=== PATIENT | female | born 1990 | race Caucasian/White ===

== ENCOUNTER 2023-08-17 18:50 | Emergency (ER) | payer OTHER, MEDICAID, SELFPAY ==
[2023-08-17 19:08] VITALS: BP 161/95; PULSE 78; RESP 18; TEMP 36.6; O2SAT 99; BMI 35.4
--- NOTE | 2023-08-17 19:45 | PC.NURSE ---
pt c/o painful bump to vaginal area, assessment by Patsy Dueñas,
--- NOTE | 2023-08-17 21:40 | ED.FEMALEGU ---
HPI - Female Genitourinary General Chief complaint: Urogenital-Female Stated complaint: abcess on groin Time Seen by Provider: 08/17/23 21:17 Source: patient Mode of arrival: Ambulatory History of Present Illness HPI Narrative: Patient is a 33-year-old healthy female who presents today with 2-3 days of swelling in her left labia. She states that she only notices it when she wipes. She has not had any fever or chills. She is okay to walk. She has not had a Bartholin cyst before but based on her own research she does not think that is what it is it has a little bit more superior. No painful frequent urination no abdominal pain. Related Data Previous Rx's Medication Instructions Recorded sulfamethoxazole 800 1 tab PO BID 7 days #14 tabs 08/17/23 mg-trimethoprim 160 mg tablet (Bactrim DS) Allergies Allergy/AdvReac Type Severity Reaction Status Date / Time No Known Drug Allergies Allergy Verified 08/17/23 19:07 Patient History Last Alcoholic Drink: does not use Substance Use Type: does not use Exam Initial Vital Signs Initial Vital Signs: Vital Signs Temperature 97.8 F 08/17/23 19:08 Pulse Rate 78 08/17/23 19:08 Respiratory Rate 18 08/17/23 19:08 Blood Pressure 161/95 H 08/17/23 19:08 Pulse Oximetry 99 08/17/23 19:08 Oxygen Delivery Method Room Air 08/17/23 19:08 GENERAL: Well-appearing, well-nourished and in no acute distress. CARDIOVASCULAR: peripheral pulses in tact, cap refill <2 sec RESPIRATORY: No respiratory distress, speaks in full sentences without difficulty VAGINA: small 1 cm area of swelling on the upper 1/3 of the labia minora, minimal swelling minimal pain EXTREMITIES: Normal range of motion, no clubbing or edema. Neurovascularly intact NEUROLOGICAL: Cranial nerves II through XII grossly intact. Normal gait and speech. SKIN: Warm, dry, no petechiae, no rashes or lesions. Course Orders Ordered: Discontinued Medications Trimethoprim/Sulfamethoxazole (Trimeth/Sulfa 160/800 (Ds) Tablet) 1 tab PO NOW ONE Stop: 08/17/23 21:45 Last Admin: 08/17/23 21:57 Dose: 1 tab Documented By: MARK ANTHONY Vital Signs Vital signs: Vital Signs - 8 hr 08/17/23 19:08 08/17/23 22:03 Temperature 97.8 F 97.7 F Pulse Rate 78 78 Respiratory Rate 18 18 Blood Pressure 161/95 H 135/87 Pulse Oximetry 99 97 Oxygen Delivery Method Room Air Room Air MDM - Female Genitourinary Lab Data Labs: Point of Care Testing Test Results Negative Urine Dip Bedside Urine Glucose Negative Bedside Urine Bilirubin - Negative Bedside Urine Ketone - Negative Urine Specific Erskine 1.01 Bedside Urine Occult Blood - Negative Bedside Urine pH 6.5 Bedside Urine Protein - Negative Bedside Urine Urobilinogen - Negative Bedside Urine Nitrite - Negative Bedside Urine Leukocytes - Negative Esterase MDM Narrative Medical decision making narrative: Patient 33-year-old female presents today with 2-3 days of left labia swelling. She is very small probable early abscess do not think Bartholin cyst at this time. It is about 1 cm by half a cm. Minimally painful to touch. Encouraged warm Sitz baths. Discharge Plan Departure Patient Disposition: Home Clinical Impression: Left genital labial abscess Instructions: DI for Skin Abscess Activity Restrictions/Additional Instructions: *You have been diagnosed with left labia abscess *What to do: At this time area is not large enough to drain. Encourage warm compresses warm baths. It may need to be drained over the next few days pain make it worse. *Continue to take medications as directed Motrin and Tylenol as needed Bactrim 1 tablet twice a day for 7 days *Follow up with your primary care provider in 2-3 days or call [phone] *Return to ER if you should have increasing pain swelling fever or any new, worsening or concerning symptoms Prescriptions: New sulfamethoxazole-trimethoprim [Bactrim DS] 800-160 mg tablet 1 tab PO BID 7 Days Qty: 14 0RF Referrals: Miscellaneous,DoctorMD [Primary Care Provider] - Stand Alone Forms: Patient Portal/API, Work Release Note
[2023-08-17] MEDS: TRIMETH/SULFA 160/800 (DS) TABLET 1 TAB PO (21:57)
[2023-08-17 22:03] VITALS: BP 135/87; PULSE 78; RESP 18; TEMP 36.5; O2SAT 97
== END 2023-08-17 22:06 | disposition home or self-care (01) ==
PROVIDERS: Emergency Provider Emergency Medicine
DX: N76.4 Abscess of vulva (principal)
CPT/HCPCS: 81003; 81025; 99283

== ENCOUNTER 2023-11-10 09:17 | Emergency (ER) | payer OTHER, MEDICAID, SELFPAY ==
[2023-11-10 09:18] VITALS: BP 154/94; PULSE 75; RESP 14; TEMP 36.6; O2SAT 99; BMI 35.4
--- NOTE | 2023-11-10 09:22 | DI.RAD.S_ITS ---
PROCEDURE: XR ANKLE RT MIN 3V INDICATIONS: pain/swelling/injury TECHNIQUE: 3 views of the ankle were acquired. COMPARISON: None. FINDINGS: Bones: Mildly displaced obliquely oriented fracture of the distal fibula. Ankle mortise is normally aligned. No suspicious bony lesions. Soft tissues: No tibiotalar joint effusion. Achilles tendon appears normal. IMPRESSION: Mildly displaced fracture of the distal fibula. Dictated by: Joshua Choi M.D. on 11/10/2023 at 9:57 Approved by: Joshua Choi M.D. on 11/10/2023 at 9:59
--- NOTE | 2023-11-10 09:22 | DI.RAD.S_ITS ---
PROCEDURE: XR FOOT RT MIN 3V INDICATIONS: pain/swelling/injury TECHNIQUE: 3 views of the foot were acquired. COMPARISON: None. FINDINGS: Bones: No fractures or dislocations within foot. Distal fibular fracture as described on dedicated ankle radiographs.. No suspicious bony lesions. Soft tissues: No tibiotalar joint effusion. Achilles tendon appears normal. IMPRESSION: No acute osseous abnormalities with the foot. Distal fibular fracture. Dictated by: Joshua Choi M.D. on 11/10/2023 at 9:59 Approved by: Joshua Choi M.D. on 11/10/2023 at 9:59
--- NOTE | 2023-11-10 09:24 | ED.EXTPRO ---
HPI - Extremity Problem General Chief complaint: Extremity Injury, Lower Stated complaint: ankle injury, possible fracture per pt Time Seen by Provider: 11/10/23 09:21 History of Present Illness HPI Narrative: Patient here with . Denies does not want a test. Patient complains of right ankle pain and swelling. She injured this last night. She participates in [employer]. She states other players landed on her ankle. Has taken ibuprofen which helps for pain. Has been using cool packs as well. Unable to bear weight. No prior injury surgery or fracture to this area. Related Data Previous Rx's Medication Instructions Recorded hydrocodone 5 mg-acetaminophen 325 1 tab PO Q6H PRN pain #16 tabs 11/10/23 mg tablet ibuprofen 800 mg tablet 800 mg PO Q8H PRN pain #20 tabs 11/10/23 ondansetron 4 mg disintegrating 4 mg PO Q8H PRN nausea and 11/10/23 tablet vomiting #10 tabs Allergies Allergy/AdvReac Type Severity Reaction Status Date / Time shellfish derived Allergy Verified 11/13/23 12:27 Review of Systems Review of Systems Narrative: GENERAL: negative chills, fatigue, malaise, fever, sweats. HEENT: negative sinus pain, ear pain, sore throat RESPIRATORY: negative dyspnea, cough CARDIOVASCULAR: negative chest pain, palpitations GASTROINTESTINAL: negative nausea, vomiting, abdominal pain : negative dysuria, frequency, hematuria MUSCULOSKELETAL: Positive muscle or bony pain SKIN: negative rash, skin lesions NEUROLOGIC: negative weakness, numbness ROS Unobtainable: All systems reviewed & are unremarkable except as noted in HPI and below Patient History Social History Smoking Status: Never smoker Smoking Status: Never smoker Substance Use Type: does not use Exam Narrative Exam Narrative: GENERAL: in no distress, not toxic not dyspneic HEAD: Normocephalic. EYES: Pupils equal round ENT: Mucous membranes moist. NECK: Trachea midline. EXTREMITIES: No gross deformities. Right knee to toes exposed. Foot is warm soft and pink with brisk cap refills light touch intact to foot and toes. Strong pedal pulse. Examination of the ankle there is lateral ecchymosis and edema at the ankle. Limited flexion-extension movement due to pain. Nontender proximal tib-fib and knee. NEURO: AOx4. SKIN: Warm and dry PSYCH: Not anxious, is cooperative Initial Vital Signs Initial Vital Signs: Vital Signs Temperature 97.8 F 11/10/23 09:18 Pulse Rate 75 11/10/23 09:18 Respiratory Rate 14 11/10/23 09:18 Blood Pressure 154/94 H 11/10/23 09:18 Pulse Oximetry 99 11/10/23 09:18 Oxygen Delivery Method Room Air 11/10/23 09:18 Procedures Orthopedic Splinting/Casting Injury #1: Time of procedure: 10:31 Side: right Lower Extremity Injury Location: ankle Lower Extremity Immobilizer: posterior splint and stirrup splint Other Orthopedic Equipment: crutches Post splinting neuro exam: intact Post splinting vascular exam: intact Placed by: Nursing Course Orders Ordered: ED Orders 11/10/23 09:22 XR ankle RT min 3V Stat XR foot RT min 3V Stat Vital Signs Vital signs: Vital Signs - 8 hr 11/10/23 09:18 Temperature 97.8 F Pulse Rate 75 Respiratory Rate 14 Blood Pressure 154/94 H Pulse Oximetry 99 Oxygen Delivery Method Room Air MDM - Extremity (Nontraumatic) Imaging Data Extremity x-ray #1: Radiologist's Impression: [address] [address] XRay Report Signed Patient: Meka Galindo MR#: [id number] : 1990 Acct:[id number] Age/Sex: 33 / F Date of Service: 11/10/23 Loc: ED Accession Number: [id number] Procedure: XR foot RT min 3V Ordering Provider: Wenceslao Lyons MD PROCEDURE: XR FOOT RT MIN 3V INDICATIONS: pain/swelling/injury TECHNIQUE: 3 views of the foot were acquired. COMPARISON: None. FINDINGS: Bones: No fractures or dislocations within foot. Distal fibular fracture as described on dedicated ankle radiographs.. No suspicious bony lesions. Soft tissues: No tibiotalar joint effusion. Achilles tendon appears normal. IMPRESSION: No acute osseous abnormalities with the foot. Distal fibular fracture. Dictated by: Joshua Choi M.D. on 11/10/2023 at 9:59 Approved by: Joshua Choi M.D. on 11/10/2023 at 9:59 Extremity x-ray #2: Radiologist's Impression: [address] [address] XRay Report Signed Patient: Meka Galindo MR#: [id number] : 1990 Acct:[id number] Age/Sex: 33 / F Date of Service: 11/10/23 Loc: ED Accession Number: [id number] Procedure: XR ankle RT min 3V Ordering Provider: Wenceslao Lyons MD PROCEDURE: XR ANKLE RT MIN 3V INDICATIONS: pain/swelling/injury TECHNIQUE: 3 views of the ankle were acquired. COMPARISON: None. FINDINGS: Bones: Mildly displaced obliquely oriented fracture of the distal fibula. Ankle mortise is normally aligned. No suspicious bony lesions. Soft tissues: No tibiotalar joint effusion. Achilles tendon appears normal. IMPRESSION: Mildly displaced fracture of the distal fibula. Dictated by: Joshua Choi M.D. on 11/10/2023 at 9:57 Approved by: Joshua Choi M.D. on 11/10/2023 at 9:59 [facility] Narrative Medical decision making narrative: Patient here with . Denies does not want a test. Patient complains of right ankle pain and swelling. She injured this last night. She participates in [employer]. She states other players landed on her ankle. Has taken ibuprofen which helps for pain. Has been using cool packs as well. Unable to bear weight. No prior injury surgery or fracture to this area. After history and exam x-ray right foot and ankle, patient has already been icing extremity/joint, patient just took ibuprofen 1 hour prior to arrival [facility] Medical records reviewed: No recent visit for this complaint Differential considered: Includes but not limited to ankle/foot fracture-sprain strain Imaging studies independently reviewed: X-ray right foot and ankle shows lateral malleolus fracture Treatments: Pain control at this time. Re-evaluations: 10:26 a.m.. Updated patient and results. Work note provided for this week. Referral for Orthopedics provided. Splinted and crutches provided. Pain is controlled. She has not on anything for pain here. Return precautions reviewed. They desire discharge home. They do understand the ankle is broken. Further prognosis to be completed by Orthopedics Discussion: Appropriate for discharge home. Limb is neurovascularly intact. Hemodynamically stable. Pain is controlled. Orthopedic referral provided. Work note provided. Return precautions reviewed. They desire discharge home Diagnosis: Ankle fracture Discharge Plan Departure Patient Disposition: Home Clinical Impression: Ankle fracture Qualifiers: Encounter type: subsequent encounter Fracture type: closed Laterality: right Fracture healing: with routine healing Qualified Code(s): S82.891D - Other fracture of right lower leg, subsequent encounter for closed fracture with routine healing Instructions: DI for Ankle Fracture Activity Restrictions/Additional Instructions: You have a broken ankle. Please keep in splint and use crutches until office appointment time. No weight-bearing until seen by orthopedic provider. Please call the orthopedic office today. Work note has been provided for you. Short course of pain medication has been provided for you as well. Please elevate the ankle when at rest to reduce swelling. May use ice pack to help reduce swelling, use this 20 minutes at a time as needed for swelling. Return if worse if any questions or concerns Prescriptions: New ibuprofen 800 mg tablet 800 mg PO Q8H PRN (Reason: pain) Qty: 20 0RF hydrocodone-acetaminophen 5-325 mg tablet 1 tab PO Q6H PRN (Reason: pain) Qty: 16 0RF ondansetron 4 mg tablet,disintegrating 4 mg PO Q8H PRN (Reason: nausea and vomiting) Qty: 10 0RF Referrals: Miscellaneous,Doctor, [Primary Care Provider] - Kiki Zapata MD [Physician] - Stand Alone Forms: Patient Portal/API, Work Release Note
== END 2023-11-10 10:56 | disposition home or self-care (01) ==
PROVIDERS: Emergency Provider Emergency Medicine
DX: S82.891A Other fracture of right lower leg, initial encounter for closed fracture (principal); X58.XXXA Exposure to other specified factors, initial encounter
CPT/HCPCS: 29515; 73610; 73630; 99283

== ENCOUNTER 2023-11-13 12:13 | Emergency (ER) | payer OTHER, MEDICAID, SELFPAY ==
[2023-11-13 12:17] VITALS: BP 168/92; PULSE 69; RESP 16; TEMP 37; O2SAT 97; BMI 35.4
--- NOTE | 2023-11-13 14:27 | ED_ITS ---
HPI - Recheck/Abnormal Lab/Rx <Leonarda Ng PA-C - Last Filed: 11/13/23 14:49> General Chief Complaint: Recheck/Abnormal Lab/Rx Stated Complaint: R ankle splint feels off Time Seen by Provider: 11/13/23 12:46 Source: patient Mode of arrival: Ambulatory History of Present Illness HPI narrative: 33-year-old female here to have her splint rechecked. She was seen on November 09 here in this ED and diagnosed with a mildly displaced fracture of the distal fibula. She was placed in a posterior splint with stirrups. She states of swelling in her ankle went down she feels the splint has loosened up too much and her foot is slowly sliding out of it. She wanted it rechecked to see if it needs to be replaced. Otherwise no complaints, no numbness or tingling in the digits. She has follow up with Orthopedics on November 18. Related Data Previous Rx's Medication Instructions Recorded hydrocodone 5 mg-acetaminophen 325 1 tab PO Q6H PRN pain #16 tabs 11/10/23 mg tablet ibuprofen 800 mg tablet 800 mg PO Q8H PRN pain #20 tabs 11/10/23 ondansetron 4 mg disintegrating 4 mg PO Q8H PRN nausea and 11/10/23 tablet vomiting #10 tabs Allergies Allergy/AdvReac Type Severity Reaction Status Date / Time shellfish derived Allergy Verified 11/13/23 12:27 Review of Systems <Leonarda Ng PA-C - Last Filed: 11/13/23 14:49> Review of Systems ROS Unobtainable: All systems reviewed & are unremarkable except as noted in HPI and below Patient History <Leonarda Ng PA-C - Last Filed: 11/13/23 14:49> Social History Smoking Status: Never smoker Smoking Status: Never smoker alcohol intake frequency: holidays/special occasions only Substance Use Type: does not use Exam <ZAYNAB Rodriguez Last Filed: 11/13/23 14:49> Narrative Exam Narrative: GENERAL: Well-developed, well-nourished, appears stated age. In no acute distress HEAD: Atraumatic. Normocephalic. EYES: Pupils equal round and reactive. Extraocular motions intact. No scleral icterus. No injection or drainage. ENT: Nose without bleeding, purulent drainage. Airway patent. NECK: Trachea midline. Non tender RESPIRATORY: Respiratory rate and effort normal EXTREMITIES: Posterior with stirrups splint intact on the right ankle, wiggles relatively easily and is not in the proper positioning by her toes. When removed, there is mild-moderate swelling and bruising of ankle. Normal cap refill, sensation, and distal pulses NEURO: AOx3. SKIN: No rash or erythema of visible areas Initial Vital Signs Initial Vital Signs: Vital Signs Temperature 98.6 F 11/13/23 12:17 Pulse Rate 69 11/13/23 12:17 Respiratory Rate 16 11/13/23 12:17 Blood Pressure 168/92 H 11/13/23 12:17 Pulse Oximetry 97 11/13/23 12:17 Oxygen Delivery Method Room Air 11/13/23 12:17 <Mena Aguilar DO - Last Filed: 11/14/23 07:57> Initial Vital Signs Initial Vital Signs: Vital Signs Temperature 98.6 F 11/13/23 12:17 Pulse Rate 69 11/13/23 12:17 Respiratory Rate 16 11/13/23 12:17 Blood Pressure 168/92 H 11/13/23 12:17 Pulse Oximetry 97 11/13/23 12:17 Oxygen Delivery Method Room Air 11/13/23 12:17 Procedures <ZAYNAB Rodriguez Last Filed: 11/13/23 14:49> Orthopedic Splinting/Casting Injury #1: Time of procedure: 14:15 Side: right Lower Extremity Injury Location: ankle Lower Extremity Immobilizer: posterior splint and stirrup splint Post splinting neuro exam: intact Post splinting vascular exam: intact Placed by: Nursing Additional Comments: Checked by provider, [facility] intact, no patient complaints Course <ZAYNAB Rodriguez Last Filed: 11/13/23 14:49> Vital Signs Vital signs: Vital Signs - 8 hr 11/13/23 12:17 Temperature 98.6 F Pulse Rate 69 Respiratory Rate 16 Blood Pressure 168/92 H Pulse Oximetry 97 Oxygen Delivery Method Room Air <DO Oscar Zuniga Last Filed: 11/14/23 07:57> Vital Signs Vital signs: Vital Signs - 8 hr 11/13/23 12:17 Temperature 98.6 F Pulse Rate 69 Respiratory Rate 16 Blood Pressure 168/92 H Pulse Oximetry 97 Oxygen Delivery Method Room Air MDM - Recheck/Abnormal Lab/Rx <Leonarda Ng PA-C - Last Filed: 11/13/23 14:49> [facility] Narrative Medical decision making narrative: Patient was initially seen on November 09 and diagnosed with distal fibula fracture of the right ankle. She was placed in a posterior splint with stirrups and states it initially felt fine but over the last couple of days as her swelling decreased it was becoming looser and seemed like her toes were slipping out. Upon inspection of her splint it did appear to be in a less than optimal position by her toes and could be wiggled pretty easily so we determined it was best to redo the splint. A new posterior stirrup splint was placed and patient states it felt better, CMS intact afterwards. She has follow up on November 18 with Orthopedics and was advised to proceed with this appointment. Discharge Plan Departure Patient Disposition: Home Clinical Impression: Ankle fracture Qualifiers: Encounter type: subsequent encounter Fracture type: closed Laterality: right Fracture healing: with routine healing Qualified Code(s): S82.891D - Other fracture of right lower leg, subsequent encounter for closed fracture with routine healing Activity Restrictions/Additional Instructions: Thank you for choosing us care for you today. You were evaluated because your right ankle splint loose. We removed and then reapplied a splint to your right ankle. If you experience any prolonged numbness or tingling, color changes to your toes, or other discomfort that is not improving with a new splint please return. Otherwise follow up with Orthopedics as scheduled on November 18. Prescriptions: No Action ibuprofen 800 mg tablet 800 mg PO Q8H PRN (Reason: pain) Qty: 20 0RF hydrocodone-acetaminophen 5-325 mg tablet 1 tab PO Q6H PRN (Reason: pain) Qty: 16 0RF ondansetron 4 mg tablet,disintegrating 4 mg PO Q8H PRN (Reason: nausea and vomiting) Qty: 10 0RF Referrals: Miscellaneous,Doctor, MD [Primary Care Provider] - Stand Alone Forms: Patient Portal/API, Work Release Note ED Sign-out <Mena Aguilar DO - Last Filed: 11/14/23 07:57> Cosign ED Attending Cosignature Attestation: I was available for consultation.
[2023-11-13 14:55] VITALS: BP 149/92; PULSE 71; RESP 24; O2SAT 98
== END 2023-11-13 14:40 | disposition home or self-care (01) ==
PROVIDERS: Emergency Provider Physician Assistant
DX: S82.891D Other fracture of right lower leg, subsequent encounter for closed fracture with routine healing (principal)
CPT/HCPCS: 99281